=== PATIENT | female | born 1975 | race Caucasian/White ===

== ENCOUNTER 2018-08-15 12:14 | Emergency (ER) | payer OTHER ==
[~2018-08-15] VITALS: Ht 167.6 cm; Wt 88.5 kg
[2018-08-15 13:21] VITALS: BP 140/73
[2018-08-15] MEDS ORDERED: ROCEPHIN ONE (13:44)
[2018-08-15] MEDS ORDERED: NORCO 7.5MG PO ONE (13:44)
[2018-08-15] MEDS ORDERED: LIDOCAINE 1% VIAL ONE (13:44)
--- NOTE | 2018-08-15 13:50 | ER.PDOC ---
General Chief Complaint: Skin Rash/Abscess Stated Complaint: BUG BITE Time seen by MD: 13:43 Source: patient, family Exam Limitations: no limitations History of Present Illness Initial Comments 42 Y/O F WITH HX SORES ON BOTH LEGS X 1-2 DAYS, NO FEVER, NO DRAINAGE, STATES HAS HAD PAST SIMILAR INFECTIONS IN PAST, WAS A PAST METH USER, HAS NOT USED X SEVERAL YRS, NO OTHER COMPLAINTS. Severity: mild Location: RLE, LLE Quality: itchy, painful Identified Cause: possibly Prior symptoms/Treatment: Similar symptoms previous Allergies: Coded Allergies: Penicillins (Verified Allergy, Unknown, Hives, 08/15/18) Past Medical History Medical History: no pertinent history Surgical History: hysterectomy LMP (females 10-50): hysterectomy Social History Smoking: greater than 1 pack/day Alcohol Use: occassionally Drug Use: marijuana Reviewed Nursing Reviewed: Vital Signs, Abn. Noted, Nursing Assessment Constitutional: no symptoms reported EENTM: no symptoms reported Respiratory: no symptoms reported Cardiovascular: no symptoms reported Gastrointestinal: no symptoms reported Genitourinary: no symptoms reported Musculoskeletal: other Skin: no symptoms reported Psychiatric/Neurological: no symptoms reported Endocrine: no symptoms reported Hematologic/Lymphatic: no symptoms reported Physical Exam General Appearance: alert, mild distress Skin: warm/dry, nml color, with erythema, skin rash, lesion, other Location: RLE, LLE Character: vesicular, erythematous With: warmth, tenderness, well defined boarders Extremities: other EENT: eyes nml inspection, lips/gums nml, pharynx nml NEURO/PSYCH: oriented x 3, CN's nml as tested, motor nml, sensation nml, mood/ affect nml Comments LESION ON POST LEFT LEG, NO ABSCESS PALP, CRUSTED LESION WITH SURROUNDING CELLULITIS, 2ND SMALLER LESION POST RIGHT LEG WITH NO ABSCESS PALP, SKIN INTACT , NO RED STREAKS, NO LYMPH NODE INLARGEMENT. Results/Orders Results/Orders Vital Signs Date Time Temp Pulse Resp B/P (MAP) Pulse Ox O2 Delivery O2 Flow Rate FiO2 08/15/18 13:21 98.2 101 17 140/73 (95) 100 Room Air 98.2 08/15/18 12:40 98.2 101 17 100 Room Air 98.2 08/15/18 12:40 98.2 101 17 98.2 Departure Time of Disposition: 14:10 Disposition: 01 HOME, SELF-CARE Impression: Primary Impression: Erythema Additional Impression: Cellulitis Condition: Stable Patient Instructions: Cellulitis Referrals: PCP,UNKNOWN (PCP) PRIMARY CARE PROVIDER Additional Instructions: TO ED NEEDED, FOLLOW UP WITH YOUR DR IN 1-2 DAYS, POSS NEED FOR LATER I&D DISCUSSED, WASH SOAP AND WATER 3-4 TIMES A DAY. Rx BACTRIM DS 1 TWICE DAILY X 10 DAYS, BACTROBAN OINTMENT APPLY TO EACH NOSTRIL TWICE DAILY X 5 DAYS. Duration or Time Spent with Pa: 15 min LORE HOLMAN DO Aug 15, 2018 13:50
[2018-08-15] MEDS ORDERED: ROCEPHIN IM IM STA (13:51)
[2018-08-15] MEDS ORDERED: NORCO 7.5MG PO STA (13:51)
[2018-08-15] MEDS ORDERED: ZOFRAN ODT ONE (13:58)
[2018-08-15] MEDS ORDERED: ZOFRAN ODT SL STA (14:00)
[2018-08-15 14:19] VITALS: BP 140/73
== END 2018-08-15 14:11 | disposition home or self-care (01) ==
LOC: ER 12:14
DX: L03.116 Cellulitis of left lower limb (principal); L03.115 Cellulitis of right lower limb; F17.210 Nicotine dependence, cigarettes, uncomplicated; F12.10 Cannabis abuse, uncomplicated; Z88.0 Allergy status to penicillin; Z90.710 Acquired absence of both cervix and uterus
CPT/HCPCS: 96372; 99283; J0696; J2001; Q0162